=== PATIENT | female | born 1950 | race Caucasian/White ===

== ENCOUNTER 2018-01-29 09:10 | Emergency (ER) | payer MEDICARE, MEDICAID ==
[~2018-01-29] VITALS: Ht 160 cm; Wt 127.0 kg
[~2018-01-29 09:10] MED LIST: CALCIUM 500 +1 EAC5; GARLIC500 M1 PO; GLUCOSAMINE CH1 EACH; HEALTHY HEART1 EAC1; HYDROCODON-ACE1 EAC7 PO; NAPROSYN375 MG PO; QVAR8.7 G1; [UNRECOGNIZED DRUG - OTHER]; [UNRECOGNIZED DRUG - OTHER]
[2018-01-29] MEDS ORDERED: HYDROCODON-ACE1 EAC7 PO (12:14)
[2018-01-29] MEDS ORDERED: IBUPROFEN 800800 MG PO (12:14)
[2018-01-29 13:34] VITALS: BP 150/87
== END 2018-01-29 13:35 | disposition home or self-care (01) ==
LOC: M.ERS 09:10
DX: M25.512 Pain in left shoulder (principal); J45.909 Unspecified asthma, uncomplicated; Z88.8 Allergy status to other drugs, medicaments and biological substances; Z88.6 Allergy status to analgesic agent

== ENCOUNTER → 2019-08-13 | Outpatient (CLI) | payer MEDICARE, MEDICAID ==
[~2019-08-13] MED LIST changes: +IBUPROFEN 800800 MG PO
== END ==
LOC: M.RAD 08-07 09:15 → M.ULTRA 11:30
DX: Z12.31 Encounter for screening mammogram for malignant neoplasm of breast (principal); Z13.820 Encounter for screening for osteoporosis; M85.88 Other specified disorders of bone density and structure, other site; R10.2 Pelvic and perineal pain

== ENCOUNTER → 2019-08-21 | Outpatient (CLI) | payer MEDICARE, MEDICAID ==
[~2019-08-21] MED LIST changes: +GARLIC1000 MG PO; +GLUCOSAMINE CH1 EAC2; -GLUCOSAMINE CH1 EACH; +MIRALAX17 GM PO; +MULTI VITAMIN1 EACH PO; +NAPROSYN500 MG PO; +PROBIOTIC1 EAC7 PO; +SENNA PLUS TAB1 EACH PO; +ULTRAM50 MG PO
--- NOTE | 2019-09-02 17:06 | PATH ---
[address] [address] PATHOLOGY RPT PROCEDURE Name: TEGAN CONTRERAS Room: [facility] Prabhjot#: [id number] Admission: 08/21/19 Date of : 48 Discharge: Report #: [id number] Path Case #: [id number] [facility] Accession Number: [id number] . 01 Material submitted: . breast - RIGHT BREAST CALCIFICATIONS. Modifiers: right . 01 Clinical history: . Right breast stereotactic biopsy for calcifications . 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 (SEE COMMENT) . (ASHLEY:macho; 08/22/2019) FORMERLY [facility], 1928–1983 08/22/2019 1646 Local . 02 Comment: Specimen type: Stereotactic biopsy Tumor site: Right breast Tumor quantitation: Less than 1% of submitted tissues Histologic type: Ductal adenocarcinoma Histologic grade: High grade (III/III) Tubules, nuclei and mitoses: 3, 3, 2 LVSI: Not identified Microcalcifications: Present in association with invasive focus and extensively in DCIS Markers: Breast tumor profile pending Block: A1 . High grade DCIS is seen to involve approximately 80% of submitted tissues and, present in two cores in A1, are a minute focus of infiltrating tumor which spans 1.4 mm in greatest dimension. The DCIS is seen to span up to 15 mm. Breast tumor profile studies will be performed on A1 and will be the subject of an addendum report. . Reviewed with Dr. Tong Enriquez who agrees with the diagnosis. Tatianna (acting [facility] Breast Navigator) notified at approximately 1350 on 08/26/2019. . (ASHLEY:mmarmen; 08/22/2019) . 02 Addendum: . Special studies report received from [facility], [address] [place] [address], [address], [place], [address], on case [id number], [place] [address] PATHOLOGY RPT PROCEDURE Name: TEGAN CONTRERAS [id number] Admission: 08/21/19 Date of : 48 Discharge: Report #: [id number] Path Case #: [id number] labeled with their number [id number], dated 09/02/2019. . Breast/Prognostic Marker Analysis . Specimen Site: Breast - Breast Cancer Specimen ID #: [id number] . ER (Estrogen Receptor) Present/Positive Percent: 25.46% Analysis: Image Comments: Staining Intensity: Weak to Moderate. . UT (Progesterone Receptor) Absent/Negative Percent: 0.20% Analysis: Image . HER2 Not Over-Expressed Score: 1+ Analysis: Image . Ki-67 Borderline Proliferation Percent: 14.27% Analysis: Image . Time to Fixation (Cold Ischemic Time): 1 minute Duration of Fixation: 12 hours 20 minutes Type of Fixative: 10% Neutral Buffered Formalin . at [employer] [employer]. Dawson Amador MD Pathologist . Methodology The HER2 Receptor protein expression is analyzed using the [employer] HER2 rabbit monoclonal antibody (clone 4B5). This assay is used for diagnostic determination of the HER2 protein over-expression in paraffin embedded, formalin fixed breast cancer tissue on the [employer] Benchmark. The specimen is processed using a secondary antibody-HRP conjugate detection system. The membrane staining of the tumor is determined either by manual score or image analysis. This antibody is intended for in vitro diagnostic use. The score is reported as 0, 1+, 2+, or 3+. This test is used for clinical purposes. . A rabbit monoclonal antibody (clone SP1) that [place] [address] PATHOLOGY RPT PROCEDURE Name: TEGAN CONTRERAS Room: [facility]#: [id number] Admission: 08/21/19 Date of : 48 Discharge: Report #: [id number] Path Case #: [id number] Receptor is used to perform immunohistochemistry on routinely fixed (formalin) paraffin embedded tissue on the [employer] Benchmark. The specimen is processed using a secondary antibody-HRP conjugate detection system. The percentage of stained tumor nuclei is determined either manually or by image analysis. This test is intended for in vitro diagnostic use. This test is used for clinical purposes. . A rabbit monoclonal antibody (clone 1E2) that recognized the Progesterone Receptor is used to perform immunohistochemistry on routinely fixed (formalin) paraffin embedded tissue on the [employer] Benchmark. The specimen is processed using a secondary antibody-HRP conjugate detection system. The percentage of stained tumor nuclei is determined either manually or by image analysis. This test is intended for in vitro diagnostic use. This test is used for clinical purposes. . A rabbit monoclonal antibody (clone 30-9) that recognized Ki67 is used to perform immunohistochemistry on routinely fixed (formalin) paraffin embedded tissue on the [employer] Benchmark. The specimen is processed using a secondary antibody-HRP conjugate detection system. The percentage of stained tumor nuclei is determined either manually or by image analysis. This test is intended for in vitro diagnostic use. This test is used for clinical purposes. . Intended Use: This antibody is intended for in vitro diagnostic (IVD) use. HER2 (4B5) is a rabbit monoclonal antibody intended for the semi-quantitative detection of HER2 antigen in sections of formalin-fixed, paraffin embedded normal and neoplastic tissue. . This antibody is intended for in vitro diagnostic (IVD) use. Estrogen Receptor (ER) (SP1) is a rabbit monoclonal antibody (IgG) that is intended for the qualitative detection of estrogen receptor (ER) antigen in sections of formalin-fixed, paraffin-embedded tissue. ER is a rabbit monoclonal antibody that recognizes human estrogen receptor alpha. . This antibody is intended for in vitro diagnostic (IVD) use. Progesterone Receptor (UT) (1E2) is a rabbit monoclonal antibody (IgG) that is intended for the qualitative detection of progesterone receptor (UT) antigen in sections of formalin fixed, paraffin embedded tissue. UT is a rabbit monoclonal antibody that recognizes the A and B forms of the human progesterone receptor. . This antibody is intended for in vitro diagnostic (IVD) use. Ki-67 (30-9) is a rabbit monoclonal antibody (IgG) directed against C-terminal portion of Ki-67 antigen. Staining for Ki-67 can be used to aid in assessing the proliferative activity of normal and neoplastic tissue. Ki-67 is a nuclear protein expressed in proliferating cells. During the cell cycle, the Ki-67 antigen is present in the G1, S, G2 and M phase but is absent in the G0 (quiescent phase). [place] [address] PATHOLOGY RPT PROCEDURE Name: TEGAN CONTRERAS Room: [facility]#: [id number] Admission: 08/21/19 Date of : 48 Discharge: Report #: [id number] Path Case #: [id number] . . Disclaimer: This Test was performed by [employer] at [address], [address]. . [facility] is a business unit of [employer] a wholly-owned subsidiary of [employer]. . This assay has not been validated on decalcified tissues. Results should be interpreted with caution if this specimen was decalcified given the likelihood of false negativity on decalcified specimens. . Any image(s) that accompany this report is/are a product representative image(s) only and should not be used to render a diagnosis. . This interpretation is contingent on the specimen and the clinical information received. . For any special tests/stains performed, known positive cells or tissues are tested with each marker and examined to ensure positivity. Positive and negative internal controls, if present, react appropriately. . This analysis is an adjunct to the evaluation of the referring physician and does not represent a final diagnosis. . The immunohistochemistry tests performed at [facility] [employer]. were validated on tissue fixed in 10% neutral buffered formalin. The performance characteristics of the tests performed on tissue processed in other fixatives is not known. . HER2 testing at [facility] is performed in compliance with the 2018 updated ASCO/CAP Clinical Practice Guideline Focused Update. If the result is EQUIVOCAL (2+), it must be confirmed by an alternative assay such as FISH or Dual MAGNO. REF: Sierra MARIN, HELEN Davis et al: Human Epidermal Growth Factor Receptor 2 Testing in Breast Cancer: ASCO/CAP Clinical Practice Guideline Focused Update. J Clin Oncol 36:5058-9078, 2018. . HER2 and ER/UT ASCO/CAP guidelines require fixation in neutral buffered formalin for a minimum of 6 and a maximum of 72 hours. Fixation times less than 6 hours may not adequately preserve cell proteins. Fixation times longer than 72 hours may cause excess cross-linking of proteins reducing the antigen available for staining. Either scenario can cause reduced staining; hence false negative results are possible and should be considered for these situations if the HER2 IHC score is less than 3+ or ER or UT is negative (no staining or <1% positive). It is recommended that specimens fixed longer than 72 hours with HER2 IHC scores less than 3+ [place] [address] PATHOLOGY RPT PROCEDURE Name: TEGAN CONTRERAS [facility] [id number] Admission: 12/18/19 Date of : 48 Discharge: Report #: [id number] Path Case #: [id number] confirmed by HER2 FISH or Dual MAGNO. The time from biopsy/excision to fixation in formalin (cold ischemic time) must be less than 1 hour. Time to fixation (cold ischemic time) greater than 1 hour should be interpreted with caution. HER2 testing, mainly HER2 by FISH, is particularly vulnerable since excessive cold ischemic time results in preferential loss of HER2 probe signals that may lead to false negative results. . SCORE STAINING PATTERN IN TUMOR CELLS INTERPRETATION RESULTS 0 No staining observed or incomplete, faint membrane staining in less than or equal to 10% of tumor cells. Negative 1+ Incomplete, faint membrane staining in greater than 10% of tumor cells. Negative 2+ Weak to moderate complete membrane staining observed in greater than 10% of tumor cells. Equivocal* *Must be confirmed by alternative assay (IHC/FISH/Dual MAGNO) 3+ Intense, complete membrane staining in greater than 10% of tumor cells. Positive . A complete copy of the report is on file. . Professional and Technical services performed by [employer] at [address] [place] [address], [facility] [address], [place] [address]. . (CLW:amadarsh 08/30/2019) LBQ/09/02/2019 Addendum Electronically Signed by Carol Velez MD, Pathologist . 02 Electronically signed: . Jah Garcia MD, Pathologist NPI- [id number] . 01 Gross description: . Received in formalin labeled "Boemmanuelle, Tegan, right breast calcifications," are multiple needle cores of yellow-ye fibrofatty tissue measuring 3.0 x 3.2 x 0.5 cm in aggregate dimensions. The tissue is submitted in its entirety in cassettes A1-A3. The cold ischemic time is 1 minute. The total formalin fixation time is 12 hours and 20 minutes. (TSD; 08/21/2019) TOB/TOB 08/21/2019 2251 Local . 02 Pathologist provided ICD-10: C50.911, D05.11 [place] [id number] PATHOLOGY RPT PROCEDURE Name: TEGAN CONTRERAS Room: [facility]#: [id number] Admission: 08/21/19 Date of : 48 Discharge: Report #: [id number] Path Case #: [id number] . 02 CPT . 086303 Specimen Comment: A courtesy copy of this report has been sent to [phone] Specimen Comment: [phone] Specimen Comment: Report sent to and Performed at: [address] [facility] [address], [place], [place] [id number] MD Dexter Kumar MD Phone: [phone] Performed at: 02 [facility] [address], [place] [address] MD Jah Garcia MD Phone: [phone]
== END | disposition home or self-care (01) ==
LOC: M.RAD 09:48
DX: C50.911 Malignant neoplasm of unspecified site of right female breast (principal); R92.1 Mammographic calcification found on diagnostic imaging of breast; Z98.890 Other specified postprocedural states; Z88.8 Allergy status to other drugs, medicaments and biological substances; Z79.899 Other long term (current) drug therapy

== ENCOUNTER → 2019-09-10 | Outpatient (CLI) | payer MEDICARE, MEDICAID ==
[~2019-09-10] MED LIST changes: -GARLIC1000 MG PO; -GLUCOSAMINE CH1 EAC2; +GLUCOSAMINE CH1 EACH; -MIRALAX17 GM PO; -MULTI VITAMIN1 EACH PO; -NAPROSYN500 MG PO; -PROBIOTIC1 EAC7 PO; -SENNA PLUS TAB1 EACH PO; -ULTRAM50 MG PO
[2019-09-10 11:12] LABS: CREATININE 0.8 mg/dL (0.6-1.3)
== END ==
LOC: M.MRI 10:38
PROVIDERS: Surgery
DX: C50.919 Malignant neoplasm of unspecified site of unspecified female breast (principal)

== ENCOUNTER → 2019-09-12 | Outpatient (CLI) | payer MEDICARE, MEDICAID ==
[~2019-09-12] MED LIST changes: +GARLIC1000 MG PO; +MIRALAX17 GM PO; +MULTI VITAMIN1 EACH PO; +NAPROSYN500 MG PO; +PROBIOTIC1 EAC7 PO; +SENNA PLUS TAB1 EACH PO
== END ==
LOC: M.ULTRA 12:38
DX: C50.611 Malignant neoplasm of axillary tail of right female breast (principal); N60.02 Solitary cyst of left breast

== ENCOUNTER 2019-09-25 06:20 | Observation (INO) | payer MEDICARE, MEDICAID ==
[~2019-09-25] VITALS: Ht 162.6 cm; Wt 126.6 kg
--- NOTE | ~2019-09-25 | H ---
[address] [address] HISTORY AND PHYSICAL Name: LIZA CONTRERAS Room: [address] Nik Rick#: [id number] Admission: 09/25/19 Attend Phys: Tali Hawkins MD Discharge: 09/26/19 Date of : 48 Report #: [id number] THIS REPORT FOR: //name// Please refer to the History and Physical performed in the physician's office. By: 1235Medical Records Staff MARIZA /MICKEY
[~2019-09-25 06:20] MED LIST changes: +GLUCOSAMINE CH1 EAC2; -GLUCOSAMINE CH1 EACH
[2019-09-25 07:20] LABS: HEMATOCRIT 39.7 % (37.0-47.0); HEMOGLOBIN 13.4 gm/dL (12.0-15.0); MCH 28.6 pg (26.0-34.0); MCHC 33.9 g/dL (28.0-37.0); MCV 84.6 fL (80.0-100.0); MPV 8.2 fl. (7.2-11.1); RBC 4.69 mil/uL (4.20-5.00); RDW-CV 14.1 % (10.5-14.5); WBC 5.7 thou/uL (4.0-11.0)
[2019-09-25 07:33] LABS: CALCIUM 8.7 mg/dL (8.5-10.1); CREATININE 0.7 mg/dL (0.6-1.3); POTASSIUM 3.9 mmol/L (3.5-5.1)
[2019-09-25 07:38] LABS: ALBUMIN 3.7 g/dL (3.4-5.0); TOTAL BILIRUBIN 0.5 mg/dL (<0.1-1.0); TOTAL PROTEIN 7.4 g/dL (6.4-8.2)
[2019-09-25 16:17] VITALS: BP 136/73
--- NOTE | 2019-09-25 17:20 | NUR ---
PT ARRIVED FROM PACU ABOUT 1240. VITALS STABLE. IV PATENT, INFUSING. ON 2LO2 WITH CAPNO. DRESSING C/D/I. BRA IN PLACE. RAMESH DRAIN PATENT. SCDs IN PLACE. R LIMB ALERT. PAIN CONTROLLED. MILD NAUSEA WITH MOVEMENT, ZOFRAN GIVEN. UP STAND BY. CALL LIGHT WITHIN REACH. WILL CONTINUE TO MONITOR.
[2019-09-25 20:30] VITALS: BP 141/76
[2019-09-25 23:56] VITALS: BP 124/58
[2019-09-26 04:01] LABS: HEMOGLOBIN 11.8 gm/dL (12.0-15.0); MCH 28.7 pg (26.0-34.0); MCHC 33.8 g/dL (28.0-37.0); MPV 8.6 fl. (7.2-11.1); RBC 4.12 mil/uL (4.20-5.00); RDW-CV 14.5 % (10.5-14.5); WBC 9.1 thou/uL (4.0-11.0)
[2019-09-26 04:11] LABS: CALCIUM 7.8 mg/dL (8.5-10.1); CREATININE 0.8 mg/dL (0.6-1.3); POTASSIUM 4.1 mmol/L (3.5-5.1)
[2019-09-26 04:12] VITALS: BP 130/66
--- NOTE | 2019-09-26 06:50 | NUR ---
PATIENT HAS RESTED WELL THROUGHOUT THE NIGHT. VSS ON 2L 02 VIA NASAL CANNULA. PAIN WELL CONTROLLED DURING THE NIGHT. MEDICATION GIVEN ORDERED AND CHARTED. DRESSING TO RIGHT BREAST AREA IS C/D/I AND PATIENT WEARING HER OWN BRA. RAMESH DRAIN TO RIGHT CHEST WITH MODERATE SANGUINEOUS OUTPUT. IV IN LEFT FOREARM-NS @ 80ML/HR. PATIENT INSTRUCTED TO USE CALL LIGHT WHEN NEEDING ASSISTANCE. HOURLY ROUNDS MADE. WILL CONTINUE WITH PLAN OF CARE AND NURSING TO MONITOR.
[2019-09-26 08:00] VITALS: BP 128/53
[2019-09-26] MEDS ORDERED: ULTRAM50 MG PO (08:43)
--- NOTE | 2019-09-26 08:58 | OP ---
[address] [address] OPERATIVE REPORT Name: LIZA CONTRERAS Room: [address] Prabhjot#: [id number] Admission: 09/25/19 Attend Phys: Tali Hawkins MD Discharge: Date of : 48 Report #: [id number] THIS REPORT FOR: //name// CC: John Deandre Hawkins DATE OF SERVICE: 09/25/2019 PREOPERATIVE DIAGNOSIS: Malignant neoplasm, central portion, right female breast. POSTOPERATIVE DIAGNOSIS: Malignant neoplasm, central portion, right female breast. PROCEDURES: 1. Injection of blue dye. 2. Right simple mastectomy. 3. Right axillary sentinel lymph node biopsy. SURGEON: Tali Hawkins MD ACCOUNTS MANAGER: None. ANESTHESIA: General anesthesia. ESTIMATED BLOOD LOSS: 20 mL. COMPLICATIONS: None. DRAINS: Round fully fluted RAMESH to the mastectomy flap. SPECIMENS: 1. Right breast. 2. Right axillary sentinel lymph node #1, hot, not blue, [address]. 3. Right axillary sentinel lymph node #2, hot, not blue, 2626. 4. Right axillary sentinel lymph node #3, hot, not blue, 2830. FINDINGS: [place] nodes, 1 and 3 examined grossly by Pathology and seemed like a large fatty replaced nodes and without suspicious findings. INDICATIONS: The patient is a 69-year-old female who was sent for routine imaging. Mammogram and ultrasound 08/13 and 08/21/2019 at [facility] showed a 4.6 cm region of linear branching calcifications with associated dilated ducts posterior to the right nipple and debris-filled cyst and dilated ducts inferior and some other findings in the left breast. Stereotactic biopsy of the calcifications on 08/21/2019 showed grade 3 [place] [address] OPERATIVE REPORT Name: LIZA CONTRERAS Room: [address] Nik Rick#: [id number] Admission: 09/25/19 Attend Phys: Tali Hawkins MD Discharge: Date of : 48 Report #: [id number] extensive DCIS, ER 25% positive, RI negative, HER-2 negative, Ki-67 14%. She was unable to tolerate an MRI. Therefore, underwent bilateral whole breast ultrasound with no additional concerning findings. Given the extent of the calcifications and the size of her breast, I recommended that we would want to at least consider a central lumpectomy. She was interested in mastectomy and desired to proceed with this. Therefore, risks and benefits for right simple mastectomy, sentinel node biopsy were discussed with the patient delineated in the H and P and she agreed to proceed. DESCRIPTION OF PROCEDURE: The patient was brought to the operating room after informed consent had been obtained. She was placed under general anesthesia in the supine position with the right arm extended. Preoperatively, she had been taken to Nuclear Medicine for injection for the sentinel node portion of the case. A 5 mL of Lymphazurin blue was injected in the intradermal and subdermal location in the upper outer periareolar region of the right breast. The right breast and axilla were then prepped and draped in normal sterile manner. The borders of the breast were marked out with a marking pen. The skin incision was then marked out with a marking pen. Inferior skin flap skin incision was made with a knife. This was deepened into the subcutaneous tissues using the Bovie electrocautery. The inferior skin flaps were created inferiorly toward the level of the serratus muscle medially toward the sternal border and laterally toward the latissimus muscle. Once the borders have been delineated, attention was turned to the superior flap. Skin incision was made with a knife. This was deepened into the subcutaneous tissues using the Bovie electrocautery. The Bovie electrocautery was used to create the superior skin flap. The superficial mastectomy plane superiorly toward the clavicle with the same medial and lateral borders. Once all tissue borders have been delineated, the breast tissue was removed from the underlying pectoralis muscle to include the pectoralis fascia in a superior to inferior and medial to lateral manner as the breast tissue was reflected laterally. There were multiple large lymph nodes that were identified. These did have radiotracer uptake; therefore, they were removed along with the breast specimen with the assistance of the LigaSure device and the Bovie electrocautery. Once the breast tissue was completely removed, the lymph nodes were from the breast itself, counts were obtained on each lymph node separately and due to the size and firmness of the lymph nodes, the decision was made to ask Pathology for evaluation. Pathology proceeded with cutting the nodes and they had an extensive massive fatty replacement and no suspicious findings. He did not do a formal frozen section or touch prep on this given these findings consistent with benign lymph nodes. Therefore, after the breast was handed off for pathology, attention was redirected to the axilla. There was an additional area of high activity associated with the Eula probe. This was isolated using assistance of the LigaSure device. Once completely removed, counts were obtained and this was a sentinel lymph node #3. The axilla was again interrogated. There was one additional area of higher counts, but it had no palpable node associated with it and was directly associated with the neurovascular bundle. Therefore, I elected to leave it. There had been [address] [place] [address] OPERATIVE REPORT Name: LIZA CONTRERAS Room: [address] Nik Rick#: [id number] Admission: 09/25/19 Attend Phys: Tali Hawkins MD Discharge: Date of : 48 Report #: [id number] nodes previous to that with very high counts associated with them. Therefore, there were no additional high counts noted in the axilla. The axilla was copiously irrigated with normal saline and was noted to be adequately hemostatic. Attention was turned to the breast tissue, the breast skin flaps. Hemostasis was obtained with the Bovie electrocautery. There were no sites of bleeding noted. The tissue seemed to be able to be approximated without removal of additional tissue; therefore, a round fully fluted RAMESH drain was placed in the mastectomy flap with its exit in the lower portion of the mastectomy flap. This was secured in place with a 3-0 nylon suture. The deep dermal layers were then closed with interrupted 3-0 Vicryl suture. Skin was closed with 4-0 Monocryl in a subcuticular manner. The wound was dressed with Steri-Strips dressings, surgical fluffs. A Biopatch to the drain site covered with a Tegaderm and this was all secured in place with surgical bra. The patient tolerated the procedure well. Sponge, lap and needle counts were correct x 2 at the end of procedure. She was transferred to recovery in stable condition. <ELECTRONICALLY SIGNED> By: Tali Hawkins MD 09/26/19 0858 1141 1214Minnico Hawkins MD /nt
[2019-09-26 10:16] VITALS: BP 130/66
[2019-09-26 10:55] VITALS: BP 130/66
--- NOTE | 2019-09-26 13:05 | NUR ---
PATIENT DISCHARGED HOME TO SELF CARE. PATIENT ALERT AND ORIENTED, PLEASANT AND COOPERATIVE W/ ASSESS AND CARES. DISCHARGED INSTRUCTIONS REVIEWED W/ PATIENT. RAMESH TEACHING DONE, RETURN DEMO DONE. PATIENT NOTED +UNDERSTANDING OF RAMESH CARES. COPY OF INSTRUCTIONS GIVEN TO PATIENT. BELONGINGS GATHERED PER PATIENT. PATIENT DRESSES INDEP. PATIENT ESCORTED TO AWAITING VEHICLE W/ STEADY GAIT, NURSING PRESENT. DENIES OTHER NEEDS AT THIS TIME. HRLY ROUNDS DONE. ~ELAINERN
--- NOTE | 2019-10-03 09:07 | PATH ---
[place] [address] PATHOLOGY RPT PROCEDURE Name: TEGAN SANTIAGO Room: [address] Nik Rick#: [id number] Admission: 09/25/19 Date of : 48 Discharge: 09/26/19 Report #: [id number] Path Case #: [id number] [facility] Accession Number: [id number] . 01 Material submitted: . PART A: breast - RIGHT BREAST CANCER. Modifiers: right PART B: lymph node - RIGHT AXILLARY SENTINEL LYMPH NODE #1. Modifiers: right, #1 PART C: lymph node - RIGHT AXILLARY SENTINEL LYMPH NODE #2. Modifiers: right PART D: lymph node - RIGHT AXILLARY SENTINEL LYMPH NODE #3. Modifiers: right . 01 Clinical history: . Right breast cancer . B. Hot, not blue, max count 61990 . C. Hot, not blue, max count 2626 . D. Hot, not blue, max count 2830 . 02 Frozen section diagnosis: . INTRAOPERATIVE CONSULTATION GROSS DIAGNOSIS (Jah Garcia MD) . B. (Right axillary sentinel lymph node #1, hot, not blue, max count 64374): - One lymph node with massive fatty infiltration and no evidence of macrometastasis. . D. (Right axillary sentinel lymph node #3, hot, not blue, max count 2830): - One lymph node with massive fatty infiltration and no evidence of macrometastasis. . Both tissues and the findings are relayed directly to Dr. Hawkins in the operating room and a note is placed in the medical record. . Intraoperative consultation performed at [facility], [address], [place] [address]. . . INTRAOPERATIVE CONSULTATION GROSS DESCRIPTION . B. Received fresh from the operating room accompanied by a label marked "YasmanyemmanuelleFrankie Misael" and "right axillary sentinel lymph node #1, hot, not blue, max count 75818, collected at 10:28" and consists of a mass of firm fatty tissue measuring 5 x 3.[address] Hawkins notes this patient has a diagnosis of high-grade ductal carcinoma and several [facility] [address] [place] [address] PATHOLOGY RPT PROCEDURE Name: TEGAN SANTIAGO Room: [address] M.R.#: [id number] Admission: 09/25/19 Date of : 48 Discharge: 09/26/19 Report #: [id number] Path Case #: [id number] axillary masses are large and firm and she requests intraoperative evaluation for potential metastasis. The specimen is serially sectioned to reveal a firm mass measuring 2.8 x 2 x 1 cm which has a recognizable uniform rim of benign-appearing lymphoid tissue generally averaging 1 mm in thickness with the remainder of the mass occupied by fat. The specimen is demonstrated to Dr. Hawkins in the operating room and the lymphoid tissues are apart, placed in formalin in a small container and then combined with the remainder of the benign-appearing fatty tissues in a larger container containing formalin. The specimen is submitted representatively in cassettes B1 through B5. . D. Received fresh from the operating room accompanied by a label marked "Tegan Santiago" and "right axillary sentinel lymph node #3, hot, not blue, max count 2830, collected at 10:42" and consists of a mass of firm fatty tissue measuring 4.5 x 2 x 2 cm. Serial sectioning reveals a nodule similar to that seen in specimen B in which there is a uniform thin rim of recognizable lymphoid tissue averaging 1 mm in thickness with the remainder of the mass within, which measures 2 x 2 x 1 cm, occupied by benign-appearing fat. The lymphoid containing tissues are placed in formalin in a small container and combined with the remainder of this specimen in a larger container also containing formalin. The specimen is submitted representatively in cassettes D1 through D7. (ASHLEY:mert; 09/25/2019) BS/ARIELLER . 02 Diagnosis: A. Right breast cancer: - MINUTE FOCUS OF DUCTAL ADENOCARCINOMA, LOW-GRADE, SPANNING 0.8 MM, ADJACENT TO PRIOR BIOPSY CHANGES (INCLUDING METALLIC CLIP) WITH ALL SURGICAL MARGINS WIDELY FREE OF INVOLVEMENT AND CLOSEST (POSTERIOR) AT LEAST 47 MM AWAY. - EXTENSIVE DUCTAL CARCINOMA IN SITU (DCIS), NUCLEAR GRADE III, COMEDO, SOLID, CRIBRIFORM AND PAPILLARY TYPES, ASSOCIATED WITH LUMINAL CALCIFICATIONS AND IN REGION OF PRIOR BIOPSY SITE, SPANNING ESTIMATED 65 MM, WITH ALL SURGICAL MARGINS FREE OF INVOLVEMENT AND CLOSEST (ANTERIOR) AT LEAST 18 MM AWAY. SEE COMMENT. - One benign lymph node with prominent fatty infiltration (0/1). - Benign skin with multiple seborrheic keratoses. See comment. . B. Right axillary sentinel lymph node #1, hot, not blue, max count 59045: - One benign lymph node with massive fatty infiltration (0/1). See comment. . C. Right axillary sentinel lymph node #2, hot, not blue, max count 2626: - One benign lymph node with fatty infiltration (0/1). See comment. . D. Right axillary sentinel lymph node #3, hot, not blue, max count 2830: - One benign lymph node with massive fatty infiltration (0/1). [place] [address] PATHOLOGY RPT PROCEDURE Name: TEGAN SANTIAGO Room: [address] Nik Rick#: [id number] Admission: 09/25/19 Date of : 48 Discharge: 09/26/19 Report #: [id number] Path Case #: [id number] comment. . (ASHLEY:mert; 10/02/2019) [facility] 10/02/2019 1634 Local . 02 Comment: Surgical Pathology Cancer Case Summary INVASIVE CARCINOMA OF THE BREAST: Resection . Procedure ___ Total mastectomy . Specimen Laterality ___ Right . Tumor Size ___ Greatest dimension of largest invasive focus >1 mm: 1.4 mm (see comment) . Histologic Type ___ Invasive carcinoma of no special type (invasive ductal carcinoma, not otherwise specified) . Histologic Grade (Jani Histologic Score) Glandular (Acinar)/Tubular Differentiation ___ Score 3 (<10% of tumor area forming glandular/tubular structures) . Nuclear Pleomorphism ___ Score 3 (vesicular nuclei, often with prominent nucleoli, exhibiting marked variation in size and shape, occasionally with very large and bizarre forms) . Mitotic Rate ___ Score 2 . Overall Grade ___ Grade 3 (scores of 8 or 9) (see comment) . + Tumor Focality + ___ Multiple foci of invasive carcinoma + ___ Number of foci: 2 + Sizes of individual foci: 1.4 mm and 0.8 mm . Ductal Carcinoma In Situ (DCIS) ___ Present + ___ Positive for extensive intraductal component (EIC) . + Size (Ext[place]) [place] [address] PATHOLOGY RPT PROCEDURE Name: TEGAN SANTIAGO [address]: [address] [id number] Admission: 09/25/19 Date of : 48 Discharge: 09/26/19 Report #: [id number] Path Case #: [id number] + Estimated size (extent) of DCIS is at least 65 mm + Number of blocks with DCIS: 5 + Number of blocks examined: 16 . + Architectural Patterns + ___ Comedo + ___ Cribriform + ___ Papillary + ___ Solid . + Nuclear Grade + ___ Grade III (high) . + Necrosis + ___ Present, central (expansive "comedo" necrosis) . + Lobular Carcinoma In Situ (LCIS) + ___ No LCIS in specimen . Tumor Extension Skin ___ Skin is present and uninvolved . Nipple ___ DCIS does not involve the nipple epidermis . Skeletal Muscle ___ No skeletal muscle is present . Margins Invasive Carcinoma Margins ___ Uninvolved by invasive carcinoma Distance from closest margin: ___ At least 47 mm. . + Specify closest margin: ___ Posterior. . DCIS Margins ___ Uninvolved by DCIS . Distance from closest margin: ___ At least 18 mm . Specify closest margin: ___ Anterior . Regional Lymph Nodes ___ [place] [address] PATHOLOGY RPT PROCEDURE Name: TEGAN SANTIAGO Room: [address] [id number] Admission: 09/25/19 Date of : 48 Discharge: 09/26/19 Report #: [id number] Path Case #: [id number] Total Number of Lymph Nodes Examined: 4 Number of Austin Nodes Examined: 3 . + Lymphovascular Invasion + ___ Not identified . + Dermal Lymphovascular Invasion + ___ Not identified . . PATHOLOGIC STAGE CLASSIFICATION (PTNM, AJCC 8TH EDITION) TNM Descriptors ___ m (multiple foci of invasive carcinoma) . Primary Tumor (pT) ___ pT1a:Tumor >1 mm but </=5 mm in greatest dimension (round any measurement >1.0-1.9 mm to 2 mm) . Regional Lymph Nodes Modifier ___ (sn):Austin node(s) evaluated. . Regional Lymph Nodes (pN) ___ pN0:No regional lymph node metastasis identified or ITCs only . + Additional Pathologic Findings + Specify: Largest invasive high-grade ductal carcinoma seen only in prior core biopsy and measuring 1.4 mm ([id number]) graded in synoptic details above. Separate smaller focus of invasive ductal carcinoma low-grade, identified in mastectomy specimen only. . + Ancillary Studies + ___ Breast Biomarker Testing Performed on Previous Biopsy + Testing Performed on A1 . + Estrogen Receptor (ER) + ___ Positive 25.46% . + Progesterone Receptor (PgR) + ___ Negative . + HER2 (by immunohistochemistry) + ___ Negative (Score 1+) . + ___ Ki-67 percentage of positive nuclei: 14.27% . + Microcalcifications + ___ Present in DCIS + ___ Present [place] [address] PATHOLOGY RPT PROCEDURE Name: TEGAN SANTIAGO Room: [address] [id number] Admission: 09/25/19 Date of : 48 Discharge: 09/26/19 Report #: [id number] Path Case #: [id number] + Clinical History + ___ Prior history of breast cancer + Specify site, diagnosis, and prior treatment: Previous right breast calcifications stereotactic biopsy performed around 08/21/2019 showing infiltrating ductal adenocarcinoma, high-grade, spanning 1.4 mm in background of extensive DCIS nuclear grade III, comedo, cribriform and solid types ([id number]). . A minute focus of low grade invasive ductal carcinoma spanning 0.8 mm is seen in the current mastectomy (A3) (Jani Histologic Score: glandular/tubular differentiation- score 1, nuclear pleomorphism- score 2, mitotic rate- score 1, overall grade: grade I) and is interpreted to be a second separate focus from that seen in the core biopsy, which was high grade. This focus disappears on the deepest of levels (level 3). . The span of DCIS in the mastectomy is based on its identification in slides A3 through A5, A8 and A12 in which section A12 was taken approximately 65 mm away from the grossly identified prior biopsy site. . The closest approach of DCIS to a margin is based on its identification in A12, taken from the "stellate,cystic-appearing mass", located at least 1.8 cm away from the closest margin (anterior). . Properly-controlled keratin AE1/AE3 IHC stains performed on B1, C1 and D1, show no evidence of metastatic tumor. . A3 reviewed with Dr. Jayden Holland, who agrees with the diagnosis. . (ASHLEY:mert; 10/02/2019) . 02 Electronically signed: . Jah Garcia MD, Pathologist NPI- [id number] . 01 Gross description: . A. The specimen is received in formalin, labeled "Tegan Santiago, right breast cancer". Received is an 872 g unoriented mastectomy measuring 20.5 x 18.7 x 7.2 cm in greatest dimensions. There is an attached ellipse of skin present measuring 21.3 x 7.2 cm with an eccentrically located everted nipple and areolar complex, measuring 1.5 x 1.3 and 4.5 x 3.9 cm, by blue. The epidermal surface also displays multiple (greater than 10) lesions which are well circumscribed, irregular in contour, flaky and light jo to light brown, ranging in size from 0.2 x 0.2 to 1.6 x 1.0 cm. There is a large amount of residual blue dye present adjacent to the areolar complex. The specimen is inked as follows: Anterior-blue, posterior-black. Sectioning reveals a previous biopsy site, with the metallic clip present, measuring 1.2 x 1.0 x 0.8 cm, which is 1.2 cm posterior to the skin, and 4.7 cm from the closest margin (posterior). This site is located in what will be designated as quadrant 1, [place] [address] PATHOLOGY RPT PROCEDURE Name: TEGAN SANTIAGO Room: [address] Nik Rick#: [id number] Admission: 09/25/19 Date of : 48 Discharge: 09/26/19 Report #: [id number] Path Case #: [id number] remaining quadrants designated in a clockwise fashion. Adjacent to the previous biopsy site, there is a white, stellate, cystic-appearing mass measuring 6.5 x 5.1 x 3.3 cm in greatest dimensions, displaying some cribriform aspects, which is 1.8 cm from the closest margin (anterior). This mass extends from quadrant 1 into all other quadrants. The remaining cut surfaces display bright yellow fibrofatty tissue with no additional nodules or lesions noted grossly. . Also received within the specimen container is an additional segment of yellow-jo fibrofatty tissue measuring 3.8 x 2.8 x 1.5 cm in greatest dimensions. Sectioning through the segment reveals a fatty replaced lymph node measuring approximately 1.8 cm in greatest dimensions. The specimen is submitted representatively as follows: . A1 perpendicular section through nipple A2 sales representative wire rope sections of skin lesions A3-A5 entire previous biopsy site A6-A12 sales representative wire rope sections of mass (A12 taken from 6.5 cm from previous biopsy site) A13 quadrant 1 A14 quadrant 2 A15 quadrant 3 A16 quadrant 4 A17-A19 sales representative wire rope sections of separately submitted lymph node, to include all solid aspects. (CAA; 09/26/2019) . B. PLEASE SEE FROZEN SECTION FOR INTRAOPERATIVE CONSULTATION GROSS DESCRIPTION. . C. The specimen is received in formalin, labeled "Tegan Santiago, right axillary sentinel lymph node #2, hot, not blue, max count 2626". Received is a segment of yellow-jo lobulated tissue measuring 2.8 x 2.3 x 1.3 cm in greatest dimensions. Sectioning reveals a fatty replaced lymph node measuring 1.2 cm in maximum dimensions. The solid aspects of the lymph node are submitted in cassettes C1 and C2. (CAA; 09/26/2019) . D. PLEASE SEE FROZEN SECTION FOR INTRAOPERATIVE CONSULTATION GROSS DESCRIPTION. [facility] 10/02/2019 1634 Local . 02 Pathologist provided ICD-10: C50.911, D05.11, L82.1 . 02 CPT . 503440, 026758, 713811, [id number], [id number] Specimen Comment: A courtesy copy of this report has been sent to [phone] Specimen Comment: [place] [address] PATHOLOGY RPT PROCEDURE Name: YASMANYFRANK ALMARAZJONO Shaw Room: [address] Nik Rick#: [id number] Admission: 09/25/19 Date of : 48 Discharge: 09/26/19 Report #: [id number] Path Case #: [id number] Specimen Comment: A duplicate report has been generated due to demographic updates. Performed at: 01 [facility] [place] [address], [place], [place] [id number] MD Dexter Kumar MD Phone: [phone] Performed at: 02 [facility] [address], [place], [place] [id number] MD Jah Garcia MD Phone: [phone]
== END 2019-09-26 13:05 | disposition home or self-care (01) ==
LOC: M.TBA 06:20 → M.PRE 06:20 → M.ORTHSURG 06:20 → M.NUC 08:00 → EDSTATUS 08:00 → M.PRE 08:00 → M.ORTHSURG 12:17 → M.TBA 12:17 → M.ORTHSURG 12:40
PROVIDERS: ADMIT Surgery
DX: C50.111 Malignant neoplasm of central portion of right female breast (principal)

== ENCOUNTER → 2020-08-14 | Outpatient (CLI) | payer MEDICARE, MEDICAID ==
[~2020-08-14] MED LIST changes: +ULTRAM50 MG PO
== END ==
LOC: M.RAD 13:50
PROVIDERS: ATTEND Surgery
DX: N60.02 Solitary cyst of left breast (principal)

== ENCOUNTER → 2021-02-15 | Outpatient (CLI) | payer MEDICARE, MEDICAID | LOC: M.RAD 12:52 → M.ULTRA 13:00 | PROVIDERS: ATTEND Surgery | DX: C50.111 Malignant neoplasm of central portion of right female breast (principal); R92.8 Other abnormal and inconclusive findings on diagnostic imaging of breast; N63.20 Unspecified lump in the left breast, unspecified quadrant ==